=== PATIENT | female | born 1965 | race Caucasian/White ===

== ENCOUNTER 2024-06-20 01:31 | Day surgery (SDC) | payer BC, SELFPAY ==
[2024-06-14 12:17] VITALS: BMI 36.9
--- NOTE | 2024-06-14 12:51 | PC.NURSE ---
Report to the Outpatient Waiting Room, entrance under the green pavilion located off [facility], at time _1200am on date _Thursday06/20/24 . Planned Procedure Time: ___1400am . Time changes happen often and if your time is changed the preop area will call you the afternoon before. - You and your visitor will be asked to self-screen and do not enter if you have any COVID symptoms. - A mask is optional within the hospital at this time. Patients may have clear liquids (water, carbonated beverages, clear teas, apple juice) until 3 hours prior to surgery with a maximum of 20 ounces. - No food from midnight until time of surgery Take the following medications with a SIP of water the morning of surgery: ___NONE DO NOT STOP ANY OF YOUR OTHER PRESCRIPTION MEDICATIONS PRIOR TO SURGERY ?EXCEPT THE FOLLOWING Medications to discontinue per physician _SEMAGLUTIDE- PT STATES HAS ALREADY D/C'D 1 WK PRIOR_ AND DC'D OTC SUPPLEMNTS Date to take last dose Please no make-up, nail danish, hairspray, perfume, deodorant, or body powder the day of surgery. No jewelry (including any body piercings) or valuables the day of surgery, leave them at home. Please take a shower or bath the night before, or the morning of, surgery with an antibacterial soap. Wear comfortable, loose fitting clothing. Children are encouraged to wear pajamas. - Jewelry must be removed prior to entering the operating room. Rings and piercings that are not removed may be cut off. - The hospital will not accept responsibility for valuables. - Please leave all valuables, including medications, at home the day of surgery. If you are going home after surgery, a licensed scoop driver must drive you home. - NO public transportation without another adult if you receive anesthesia. - We recommend that an adult stay with you for 24 hours following discharge. - We also recommend that you do not drive, make important decision, drink alcoholic beverages, or take any drugs that were not prescribed by your health care provider for at least 24 hours after your discharge time. Follow any additional instructions given to you from your surgeon. If you or anyone in your household have experienced Covid symptoms in the past week, please notify your surgeon or the nurse liaison at the phone number below for possible testing. Telephone instructions given to _EMIGDIO and asked if any additional questions and then verbalized understanding. Patient advised to call surgeon office or pre surgery nurse liaison [phone] if any additional questions.
--- NOTE | 2024-06-19 08:09 | PM.IMHP ---
H&P: HPI History of Present Illness Date/Time: 06/19/24 08:09 Chief Complaint: incontinence Narrative: mixed incontinence. On meds for OAB. desrires treatment for SHAYY Review of Systems Review of Systems: All systems reviewed & are unremarkable except as noted in HPI and below [facility] Social History Social History Smoking status: Never smoker Alcohol intake: current Substance use: current Substance use type: marijuana Other substance usage details: EDIBLES FOR SLEEP Living arrangements: with family Spiritual care concerns: No Meds Home Medications and Allergies Home Medications Medication Instructions Recorded Confirmed Type benazepril 20 1 tablet PO DAILY 06/14/24 06/14/24 History mg-hydrochlorothiazide 25 mg tablet semaglutide (weight loss) 2.4 7 mg subcut USEASDIRECTD 06/14/24 06/14/24 History mg/0.75 mL subcutaneous pen injector simvastatin 5 mg tablet 5 mg PO DAILY 06/14/24 06/14/24 History Allergies Allergy/AdvReac Type Severity Reaction Status Date / Time No Known Allergies Allergy Verified 06/14/24 12:39 Exam Narrative: + urethral mobility Assessment and Plan Assessment and plan (1) SHAYY (stress urinary incontinence, female): Code(s): N39.3 - Stress incontinence (female) (male) Status: Acute Assessment and Plan: urethral sling
--- NOTE | 2024-06-20 07:15 | WPDHPUPDATE1 ---
History and Physical Update Update Date/Time: 06/20/24 07:15 History and Physical has been reviewed, including an updated exam of the patient. There are NO changes in the patient's condition. Risks, benefits, and alternatives have been discussed and questions answered. Patient agrees to proceed with procedure.
[2024-06-20 13:00] VITALS: BP 133/72; PULSE 73; RESP 14; TEMP 36.4; O2SAT 99
[2024-06-20 13:11] LABS: Anion Gap 11 mmol/L (4-12); Blood Urea Nitrogen 12 mg/dL (7-17); Calcium 9.2 mg/dL (8.4-10.2); Carbon Dioxide 27 mmol/L (22-30); Chloride 100 mmol/L (98-107); Estimated CRCL calculation 96 ml/min; Estimated Glomerular Filt Rate > 60; Glucose 94 mg/dL (65-110); Potassium 3.9 mmol/L (3.4-5.0); Sodium 138 mmol/L (137-145)
[2024-06-20] MEDS: ceFAZolin 2 GM/D5W 50 ML 2 GM/50 ML BAG IVPB (13:36)
[2024-06-20] MEDS: BUPIVACAINE/EPINEPHRINE 0.5% 10 ML VIAL INFILTRATE (14:07)
--- NOTE | 2024-06-20 14:10 | W.PM.PROC2 ---
Procedure Note - Detailed Date of Procedure 06/20/24 Pre-op Diagnosis stress incontinence Post-op Diagnosis Same Procedure Performed mid urethral sling cystoscopy Surgeon Abram Taylor MD Anesthesia MAC and Local Indications This is a female with confirm stress urinary incontinence. She desires surgical correction. She understands the risks of bleeding, infection, injury to the urinary tract, vaginal mesh extrusion, urinary tract mesh erosion, obstructive voiding requiring a secondary procedure, hip and leg pain, dyspareunia, inability to improve overactive bladder symptoms. She agrees to proceed. she understands when help her overactive bladder symptoms. Description of Procedure She was correctly identified. Informed consent obtained. She was brought the operating room. She was given appropriate anesthesia. She was given appropriate perioperative antibiotics. A time-out performed. I marked out the site of the inner thigh incisions. I anesthetized the skin and made those incisions. I anesthetized the anterior vaginal wall over the mid urethra. I made a 1 cm incision. I dissected out laterally taking great care not to injure the refilled vaginal wall. I passed the helical trocars. First on the left. Then on the right. I did this from the thigh incision towards the vaginal incision. The sling was connected to the trocars and brought out through the thigh incision. I tensioned the sling appropriately. I cut and removed the plastic sheaths. I then closed the incision with 2 0 Vicryl. I examined bilateral sulcus. There is no sign of any exposed foreign body or mesh On cystoscopy there is no tumors or surgical artifact. There was no surgical artifact in the urethra. I cut the excess sling material. Close incisions with glue. She was awakened and transferred to the PACU in stable condition. Implants Urethral sling Estimated Blood Loss 20 Drains No Packing No Pathology None sent Complications No immediate complications Condition Stable Disposition PACU
[2024-06-20 14:15] VITALS: BP 121/76; PULSE 69; RESP 12; O2SAT 96
[2024-06-20] MEDS: LACTATED RINGERS 1,000 ML 30 ML IV CONT (14:15)
[2024-06-20 14:45] VITALS: BP 125/75; PULSE 62; RESP 20
--- NOTE | 2024-06-20 15:00 | WPDANESEPPF ---
Anes - Initial Pre Proc Eval Procedure: Operation Date: 06/20/24 14:00 Proposed Procedures p Urethral Sling - Abram Taylor MD Date/Time: 06/20/24 15:00 Surgeon: Abram Taylor MD Pre Op Diagnosis: stress incontinence Patient Data Age: 58 Gender: F Height: 1.7 m Weight: 110.3 kg Last Vital Signs Temp 97.5 F L 06/20/24 13:00 Pulse 73 06/20/24 13:00 Resp 14 06/20/24 13:00 BP 133/72 06/20/24 13:00 Pulse Ox 99 06/20/24 13:00 O2 Del Method Room Air 06/20/24 13:00 Allergies Allergy/AdvReac Type Severity Reaction Status Date / Time No Known Allergies Allergy Verified 06/20/24 13:55 Home Medications Medication Instructions Recorded Confirmed Type benazepril 20 1 tablet PO DAILY 06/14/24 06/14/24 History mg-hydrochlorothiazide 25 mg tablet semaglutide (weight loss) 2.4 7 mg subcut USEASDIRECTD 06/14/24 06/14/24 History mg/0.75 mL subcutaneous pen injector simvastatin 5 mg tablet 5 mg PO DAILY 06/14/24 06/14/24 History hydrocodone 5 mg-acetaminophen 325 1 tablet PO Q6H PRN pain #20 tabs 06/20/24 Rx mg tablet Laboratory Tests 06/20/24 12:53 Sodium 138 mmol/L (137-145) Potassium 3.9 mmol/L (3.4-5.0) Chloride 100 mmol/L (98-107) Carbon Dioxide 27 mmol/L (22-30) Anion Gap 11 mmol/L (4-12) BUN 12 mg/dL (7-17) Creatinine 0.70 mg/dL (0.7-1.0) Estim Creat Clear Calc 96 ml/min Estimated GFR > 60 (59 - ) Glucose 94 mg/dL (65-110) Calcium 9.2 mg/dL (8.4-10.2) Patient hx anesthesia problems: none Family hx anesthesia problems: none Results Review: All pre-operative results and documents have been reviewed as part of the pre-operative evaluation. [facility] Social History Social History Smoking status: Never smoker Alcohol intake: current Substance use: current Substance use type: marijuana Other substance usage details: EDIBLES FOR SLEEP Living arrangements: with family Spiritual care concerns: No Anes - Eval Final PreProcedure Day of Procedure 06/20/24 15:00 Patient weight: obese Heart: regular rate and rhythm Lungs: clear to auscultation Airway: Mallampati scale class II Neurological: alert and oriented Last oral intake: >/= 8 hours ASA classification: III Emergent: no Anesthetic plan: proceed Anesthesia type and monitoring: general GIVS and standard monitoring Results Review: All pre-operative results and documents have been reviewed as part of the pre-operative evaluation. Informed Consent: The patient's anesthetic plan and its attendant risks and benefits were discussed with the patient/family/POA. Questions were solicited and answers provided to the satisfaction of the patient/family/POA.
[2024-06-20 15:15] VITALS: BP 120/70; PULSE 60; RESP 20
== END 2024-06-20 15:20 | disposition home or self-care (01) ==
PROVIDERS: Anesthesiology; Visit Provider Urology
PROC: (CPT 57288; principal; 2024-06-20 14:00)
DX: N39.3 Stress incontinence (female) (male) (principal); N32.81 Overactive bladder; F12.90 Cannabis use, unspecified, uncomplicated; E66.9 Obesity, unspecified; Z68.38 Body mass index [BMI] 38.0-38.9, adult; Z79.85 Long-term (current) use of injectable non-insulin antidiabetic drugs; Z79.891 Long term (current) use of opiate analgesic
CPT/HCPCS: 57288; 36415; 80048; C1771; J0690; J1100; J1956; J2405; J2704; J3010; J7030; J7120